=== PATIENT | male | born 1995 | race Two or more races ===

== ENCOUNTER 2016-12-30 17:07 | Emergency (ER) | payer SELFPAY ==
[~2016-12-30] VITALS: Ht 175.3 cm; Wt 62.6 kg
[2016-12-30 18:16] LABS: BASOPHILS # (AUTO) 0.1 K/uL (0.0-8.0); BASOPHILS % (AUTO) 0.7 % (0.0-2.0); EOSINOPHILS # (AUTO) 0.1 K/uL (0.0-0.7); EOSINOPHILS % (AUTO) 1.2 % (0.0-7.0); HEMATOCRIT 47.2 % (40-50); HEMOGLOBIN 15.7 G/DL (14.0-18.0); LYMPHOCYTES # (AUTO) 2.7 K/UL (0.8-4.8); LYMPHOCYTES % (AUTO) 36.6 % (20.5-51.5); MEAN CORPUSCULAR HGB CONC 33 g/dL (32.0-37.0); MEAN CORPUSCULAR VOLUME 81.3 FL (82.0-92.0); MONOCYTES # (AUTO) 0.5 K/UL (0.1-1.30); MONOCYTES % (AUTO) 6.6 % (0.0-11.0); NEUTROPHILS % (AUTO) 54.9 % (38.5-71.5); PLATELET COUNT (AUTO) 249 K/UL (150-450); WHITE BLOOD COUNT (AUTO) 7.4 K/UL (4.0-11.2)
[2016-12-30 18:17] LABS: CREATININE 1.1 mg/dL (0.6-1.3); POTASSIUM 3.9 mmol/L (3.5-5.1)
--- NOTE | 2016-12-30 18:25 | NUR ---
Patient discharged to home in stable conditon. Written and verbal after care instructions given to patient and mother. Patient and mother verbalized understanding of instructions.
[2016-12-30 18:38] LABS: THYROID STIMULATING HORMONE 1.909 mIU/mL (0.358-3.740)
== END 2016-12-30 18:28 | disposition home or self-care (01) ==
LOC: ER 17:07
DX: R63.4 Abnormal weight loss (principal)
CPT/HCPCS: 36415; 84443; 85025; A4663